=== PATIENT | female | born 1965 | race Asian ===

== ENCOUNTER 2019-03-29 02:39 | Emergency (ER) | payer OTHER ==
[~2019-03-29] VITALS: Ht 162.6 cm; Wt 67.3 kg
[2019-03-29] MEDS ORDERED: CYCLOBENZAPRINE HCL 10 MG TABLET PO ONE (03:15)
[2019-03-29] MEDS ORDERED: KETOROLAC TROMETHAMINE 30 MG/ML VIAL IM ONE (03:15)
[2019-03-29 04:17] VITALS: BP 122/94
== END 2019-03-29 04:19 | disposition home or self-care (01) ==
LOC: EMS 02:40
DX: M50.920 Unspecified cervical disc disorder, mid-cervical region, unspecified level (principal); M54.6 Pain in thoracic spine
CPT/HCPCS: 96372; 99283; J1885

== ENCOUNTER 2020-11-22 13:57 | Emergency (ER) | payer OTHER ==
[~2020-11-22] VITALS: Ht 167.6 cm; Wt 68.2 kg
[2020-11-22] MEDS ORDERED: ACETAMINOPHEN 500 MG TABLET PO ONE (14:45)
[2020-11-22] MEDS ORDERED: KETOROLAC TROMETHAMINE 30 MG/ML VIAL IM ONE (14:45)
[2020-11-22 15:22] VITALS: BP 115/79
== END 2020-11-22 15:24 | disposition home or self-care (01) ==
LOC: EMS 14:00
DX: M54.12 Radiculopathy, cervical region (principal)
CPT/HCPCS: 96372; 99283; J1885